=== PATIENT | female | born 2000 | race Caucasian/White ===

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

== ENCOUNTER 2019-08-08 16:31 | Emergency (ER) | payer SELFPAY ==
[~2019-08-08] VITALS: Ht 154.9 cm; Wt 68.0 kg
[2019-08-08] MEDS ORDERED: IBUPROFEN 600MG TABLET PO STA (18:38)
[2019-08-08 20:13] LABS: CLARITY URINE CLEAR (CLEAR); COLOR URINE YELLOW (YELLOW); KETONES URINE 1+ (NEGATIVE); LEUKOCYTE ESTERASE URINE TRACE (NEGATIVE); NITRITE URINE NEGATIVE (NEGATIVE); OCCULT BLOOD URINE NEGATIVE (NEGATIVE); PROTEIN URINE TRACE (NEGATIVE); SPECIFIC GRAVITY URINE 1.036 (1.005-1.030); UROBILINOGEN URINE 0.2 E.U./dL (0.2-1.0)
[2019-08-08 20:40] VITALS: BP 124/74
== END 2019-08-08 20:53 | disposition home or self-care (01) ==
LOC: ER 16:31
DX: M54.89 Other dorsalgia (principal); R03.0 Elevated blood-pressure reading, without diagnosis of hypertension
CPT/HCPCS: 81003; 81025; 99283